=== PATIENT | female | born 2000 | race American Indian/Alaskan Native ===

== ENCOUNTER 2020-08-17 03:27 | Observation (INO) ==
[2020-08-17] MEDS ORDERED: Morphine 4 MG/ML VIAL (1 ml) IV PRN (03:56)
[2020-08-17] MEDS ORDERED: Morphine 4 MG/ML VIAL (1 ml) IV ONE (03:56)
[2020-08-17] MEDS ORDERED: Ondansetron 4 mg VIAL 2 MG/ML 2 ml VIAL IV ONE (03:56)
[2020-08-17] MEDS: NS 0.9% 1000 ml BAG 2,000 ML IV ONE (04:09)
[2020-08-17 04:11] LABS: ABS Eosinophils 0.1 10^3/ul (0-0.6); ABS Lymphocytes 1.8 10^3/ul (1.0-4.8); ABS Monocytes 1.1 10^3/ul (0-0.8); ABS Neutrophils 13.3 10^3/ul (1.5-7.7); Eosinophil % 0.4 %; Hematocrit 38 % (35-47); Hemoglobin 12.8 g/dL (12.0-16.0); Mean Corpuscular HGB Conc 33 g/dL (31-36); Mean Corpuscular Hemoglobin 28 pg (27-31); Mean Corpuscular Volume 84 fL (80-97); Mean Platelet Volume 7.6 fL (7.4-10.4); Platelet Count 264 10^3/uL (150-450); Red Blood Count 4.53 10^6 /uL (3.70-4.87); Red Cell Distribution Width 15 % (10-15); White Blood Count 16.2 10^3/uL (3.5-10.8)
[2020-08-17 04:29] LABS: ALT 18 U/L (7-52); AST 24 U/L (13-39); Albumin 4.6 g/dL (3.2-5.2); Albumin/Globulin Ratio 1.4 (1-3); Alkaline Phosphatase 70 U/L (35-149); Anion Gap 8 mmol/L (2-11); Blood Urea Nitrogen 15 mg/dL (6-24); C Reactive Protein 2.36 mg/L (<8.01); CO2 Carbon Dioxide 27 mmol/L (22-32); Calcium 9.7 mg/dL (8.6-10.3); Chloride 103 mmol/L (101-111); EGFR African American 97.8 (>60); EGFR Non-African American 80.9 (>60); Globulin 3.2 g/dL (2-4); Glucose 104 mg/dL (70-100); Potassium 3.7 mmol/L (3.5-5.0); Sodium 138 mmol/L (135-145); Total Protein 7.8 g/dL (6.4-8.9)
[2020-08-17 04:35] LABS: HCG Pregnancy < 0.60 mIU/mL
[2020-08-17] MEDS ORDERED: Iohexol 300 (CONTRAST) 10 ML SDV IV ONE (05:18)
[2020-08-17 05:26] LABS: HIV 4th Generation Nonreactive (Nonreactive)
[2020-08-17 05:55] LABS: Urine Appearance Cloudy; Urine Bilirubin Negative (Negative); Urine Blood Negative (Negative); Urine Color Yellow; Urine Glucose Negative (Negative); Urine Ketones 1+ (Negative); Urine Nitrite Negative (Negative); Urine Protein Negative (Negative); Urine Specific Gravity 1.011 (1.002-1.030); Urine Urobilinogen Negative (Negative)
[2020-08-17] MEDS ORDERED: Piperacillin/Tazobac ADVAN 3.375 GM in NS 0.9% 100 ml BAG 100 ML IV ONE (06:39)
[2020-08-17] MEDS ORDERED: Ondansetron 4 mg VIAL 2 MG/ML 2 ml VIAL IV PRN ×2 (08:31→18:16)
[2020-08-17] MEDS ORDERED: Lactated Ringers 1000 ml BAG 1,000 ML IV SCH (09:00)
[2020-08-17] MEDS ORDERED: HYDROmorphone 0.5 MG/0.5 ML SYRINGE IV SLOW PU PRN (09:12)
[2020-08-17] MEDS ORDERED: Piperacillin/Tazobactam VIAL 3.375 GM in NS 0.9% 100 ml BAG 100 ML IVPB SCH (14:30)
[2020-08-17] MEDS ORDERED: Dexamethasone IV 4 MG/ML VIAL 1 ml VIAL ONE (17:06)
[2020-08-17] MEDS ORDERED: Propofol 10 MG/ML 20 ML BTL ONE (17:06)
[2020-08-17] MEDS ORDERED: Ondansetron 4 mg VIAL 2 MG/ML 2 ml VIAL ONE (17:06)
[2020-08-17] MEDS ORDERED: Rocuronium 50 mg VIAL 10 mg/ml 5 ml VIAL (50 mg) ONE (17:06)
[2020-08-17] MEDS ORDERED: Lidocaine 2% PF 5 ML VIAL ONE (17:06)
[2020-08-17] MEDS ORDERED: fentaNYL 100 mcg/2 ml 50 MCG/ML VIAL ONE ×2 (17:06→19:27)
[2020-08-17] MEDS ORDERED: Midazolam 5 mg/5 ml VIAL 1 mg/ml 5 ml VIAL (5 mg) ONE (17:06)
[2020-08-17] MEDS ORDERED: Bupivacaine 0.25% SDV 30 ML ONE (17:12)
[2020-08-17] MEDS ORDERED: Famotidine IV 10 MG/ML 2 ml VIAL (20 mg) ONE (17:21)
[2020-08-17] MEDS ORDERED: Phenylephrine 40 mcg/mL 10mL (400mcg) SYRINGE ONE (17:55)
[2020-08-17] MEDS ORDERED: fentaNYL 100 mcg/2 ml 50 MCG/ML VIAL IV PRN (18:16)
[2020-08-17] MEDS ORDERED: Naloxone 0.4 mg VIAL 0.4 mg/ml 1 ml VIAL IV PRN (18:16)
[2020-08-17] MEDS ORDERED: Bacitracin OINTMENT TUBE ONE (18:19)
[2020-08-17 20:39] VITALS: BP 109/70
== END 2020-08-17 21:03 | disposition home or self-care (01) ==
LOC: ED 03:27 → SSU 03:27
PROVIDERS: ADMIT Physician Assistant Medical; ATTEND Surgery